=== PATIENT | female | born 2000 | race African-American/Black ===

== ENCOUNTER 2024-07-05 18:25 | Emergency (ER) | payer OTHER ==
[~2024-07-05] VITALS: Ht 157.5 cm; Wt 66.2 kg
[2024-07-05] MEDS ORDERED: PRENTAB9 PO (18:52)
== END 2024-07-05 20:34 | disposition admitted as inpatient to this hospital (09) ==
LOC: M ED 18:25
DX: Z53.21 Procedure and treatment not carried out due to patient leaving prior to being seen by health care provider (principal)

== ENCOUNTER 2024-07-05 18:35 | Outpatient (CLI) ==
[~2024-07-05] VITALS: Ht 157.5 cm; Wt 66.0 kg
[2024-07-05 18:50] VITALS: BP 132/70
[2024-07-05] MEDS ORDERED: PRENTAB9 PO (18:52)
[2024-07-05] MEDS ORDERED: HOME MED LIST COMPLETE! XX SCH (18:55)
[2024-07-05 21:04] LABS: Trichomonas vaginalis (AMP) NOT DETECTED (NEGATIVE)
[2024-07-05 21:27] LABS: GC DNA AMPLIFICATION NEGATIVE (NEGATIVE)
== END 2024-07-05 19:48 | disposition home or self-care (01) ==
LOC: M LDO 18:35
PROVIDERS: ATTEND Advanced Practice Midwife
DX: O26.893 Other specified pregnancy related conditions, third trimester (principal); O99.013 Anemia complicating pregnancy, third trimester; O98.313 Other infections with a predominantly sexual mode of transmission complicating pregnancy, third trimester; R25.2 Cramp and spasm; D50.9 Iron deficiency anemia, unspecified; A74.9 Chlamydial infection, unspecified; Z3A.32 32 weeks gestation of pregnancy
CPT/HCPCS: 59025; 87661; 87810; 87850; G0463

== ENCOUNTER → 2024-08-02 | Outpatient (REF) | payer OTHER ==
[~2024-08-02] MED LIST: PRENTAB9 PO
== END ==
LOC: M SFHCWAGY 12:46
PROVIDERS: ATTEND Obstetrics & Gynecology
DX: Z34.93 Encounter for supervision of normal pregnancy, unspecified, third trimester (principal); Z3A.36 36 weeks gestation of pregnancy

== ENCOUNTER → 2024-08-18 | Outpatient (CLI) | payer OTHER ==
[2024-08-18 18:14] LABS: ALBUMIN 2.6 G/DL (3.2-5.2); ALKALINE PHOSPHATASE 189 U/L (35-104); ALT/SGPT 12 U/L (7.0-40); AST/SGOT 16 U/L (<34); BILIRUBIN,TOTAL 0.3 MG/DL (0.3-1.2); BLOOD UREA NITROGEN < 5 MG/DL (9-23); CALCIUM LEVEL 9.2 MG/DL (8.5-10.1); CARBON DIOXIDE LEVEL 25 MMOL/L (20-31); CHLORIDE LEVEL 103 MMOL/L (98-107); CREATININE FOR GFR 0.41 MG/DL (0.55-1.30); GLOMERULAR FILTRATION RATE > 60.0 (>60); GLUCOSE, FASTING 101 MG/DL (60-100); POTASSIUM SERUM 3.8 MMOL/L (3.5-5.1); SODIUM LEVEL 137 MMOL/L (136-145); TOTAL PROTEIN 6.5 G/DL (5.7-8.2)
== END ==
LOC: M PLALAB 15:41
PROVIDERS: ATTEND Advanced Practice Midwife
DX: Z34.83 Encounter for supervision of other normal pregnancy, third trimester (principal)

== ENCOUNTER 2024-09-03 10:39 | Inpatient (IN) | payer OTHER ==
[2024-09-03] VITALS (14 sets, daily range): BP systolic 115–135; BP diastolic 58–83
[~2024-09-03] VITALS: Ht 157.5 cm; Wt 72.3 kg
[2024-09-03] MEDS ORDERED: HOME MED LIST COMPLETE! XX SCH (11:05)
[2024-09-03] MEDS ORDERED: METHYLERGONOVINE MALEATE 0.2MG/ML 1ML VIAL IM PRN (11:35)
[2024-09-03] MEDS ORDERED: LIDOCAINE 1% MDV 20ML VIAL INFIL PRN (11:35)
[2024-09-03] MEDS ORDERED: TRANEXAMIC ACID INJection 1,000 MG in NS 100 ML IV PRN (11:35)
[2024-09-03] MEDS ORDERED: CARBOPROST TROMETHAMINE 250 MCG/ML AMP IM PRN (11:35)
[2024-09-03 12:28] LABS: HEMATOCRIT 38.5 % (36.0-47.0); HEMOGLOBIN 12.7 g/dl (12.0-15.5); MEAN CORPUSCULAR HEMOGLOBIN 30.2 pg (27.0-33.0); MEAN CORPUSCULAR VOLUME 91.7 fl (80.0-96.0); PLATELET COUNT, AUTOMATED 254 10^3/uL (150-450); WHITE BLOOD COUNT 8.9 10^3/uL (4.0-10.0)
[2024-09-03 13:23] LABS: HIV 1&2 SCREEN NEGATIVE (NEGATIVE)
[2024-09-03 13:31] LABS: HEPATITIS C VIRUS ABY INDEX 0.03 INDEX (<0.8)
[2024-09-03] MEDS: miSOPROStol 50MCG 1/2 TABLET PO SCH (13:52)
[2024-09-03] MEDS: LR 1,000 ML IV SCH (15:56)
[2024-09-03] MEDS ORDERED: LR 1,000 ML IV SCH (19:10)
[2024-09-03] MEDS: OXYTOCIN DRIP 30 UNITS in IV 1 EA IV SCH (20:49)
[2024-09-04] VITALS (58 sets, daily range): BP systolic 102–156; BP diastolic 52–87
[2024-09-04] MEDS ORDERED: NALOXONE INJ 0.4MG/1ML VIAL IV PRN (13:30)
[2024-09-04] MEDS ORDERED: LR 500 ML IV PRN (13:30)
[2024-09-04] MEDS ORDERED: EPIDURAL/PCA KEYS XX PRN (13:30)
[2024-09-04] MEDS ORDERED: ePHEDrine SULFATE 25 MG/5 ML(5MG/ML) SYRINGE IVP PRN (13:30)
[2024-09-04] MEDS: LACTATED RINGER'S 1000 ML IV STA (13:45)
[2024-09-04] MEDS: FENTANYL/ROPIVACAINE/NACL BAG 100 ML EPIDURAL SCH (13:45)
[2024-09-04] MEDS: ONDANSETRON 4MG 2ML VIAL IV PRN (14:05)
[2024-09-04] MEDS: diphenhydrAMINE 50MG/ML VIAL IV PRN (17:23)
[2024-09-04] MEDS: ACETAMINOPHEN 500 MG TAB PO ONE (21:47)
[2024-09-05] VITALS (9 sets, daily range): BP systolic 112–150; BP diastolic 54–77; TEMP 98.3; O2SAT 96–98
[2024-09-05] MEDS: ceFAZolin SODIUM 2 GM in DEXTROSE 5% (D5W) ADV/MINI-BAG 50 ML IV ONE (01:46)
[2024-09-05] MEDS: AZITHROMYCIN INJ 500 MG, VIAL MATE ADAPTER 1 EACH in NS 250 ML IV ONE (01:46)
[2024-09-05] MEDS: BICITRA 30ML SOLN UDC PO ONE (01:46)
[2024-09-05] MEDS ORDERED: MORPHINE PRES-FREE INJ 10 MG/10 ML VIAL As Ordered ONE (01:46)
[2024-09-05] MEDS ORDERED: OXYTOCIN 30UNITS IN 0.9% NaCl 500ML IV BAG As Ordered ONE (01:47)
[2024-09-05] MEDS ORDERED: LIDOCAINE 2% W/EPINEPHRINE 20ML VIAL **PRES FREE As Ordered ONE (01:49)
[2024-09-05] MEDS ORDERED: METOCLOPRAMIDE INJ 10MG/2ML VIAL IV PRN (01:50)
[2024-09-05] MEDS ORDERED: diphenhydrAMINE 50MG/ML VIAL IV PRN (01:50)
[2024-09-05] MEDS ORDERED: **NOTE PATIENT COMMENT** MISC XX SCH (01:50)
[2024-09-05] MEDS ORDERED: NALOXONE INJ 0.4MG/1ML VIAL IV PRN ×2 (01:50)
[2024-09-05] MEDS ORDERED: LIDOCAINE PRES-FREE 2% 10ML AMP As Ordered ONE (02:05)
[2024-09-05] MEDS ORDERED: fentaNYL 100 MCG/2 ML INJECTION As Ordered ONE (02:34)
[2024-09-05] MEDS ORDERED: OXYTOCIN INJ 10UNITS/ML 1ML VIAL As Ordered ONE (02:39)
[2024-09-05] MEDS ORDERED: KETOROLAC 30 MG/ML 1ML VIAL As Ordered ONE (02:39)
[2024-09-05] MEDS ORDERED: ACETAMINOPHEN 1000MG/100ML IV BAG As Ordered ONE (02:39)
[2024-09-05] MEDS ORDERED: ANUSOL HC CREAM 30GM TOP PRN (03:15)
[2024-09-05] MEDS ORDERED: MOM 30ML SUSPENSION UDC PO PRN (03:15)
[2024-09-05] MEDS ORDERED: ONDANSETRON 4MG 2ML VIAL IV PRN (03:15)
[2024-09-05] MEDS ORDERED: CALCIUM CARBONATE 500 MG CHEW U/D PO PRN (03:15)
[2024-09-05] MEDS ORDERED: RHOGAM 300MCG (1500IU) INJ IM SCH (03:15)
[2024-09-05 03:18] LABS: CORD GAS ABE V -1.2; CORD GAS O2 SAT V 69.1 %; CORD GAS PCO2 V 41.8 mmHg; CORD GAS PH V 7.376 UNITS; CORD GAS PO2 V 27.6 mmHg; CORD GAS SBC V 22.7 MMOL/L; CORD GAS TCO2 V 25.2 MMOL/L
[2024-09-05 03:20] LABS: CORD GAS ABE A -5.5; CORD GAS HCO3 A 22.1 MMOL/L; CORD GAS O2 SAT A 64.2 %; CORD GAS PCO2 A 50.2 mmHg; CORD GAS PH A 7.261 UNITS; CORD GAS PO2 A 29.8 mmHg; CORD GAS SBC A 19.2 MMOL/L; CORD GAS TCO2 A 23.6 MMOL/L
[2024-09-05] MEDS: OXYTOCIN DRIP 30 UNITS in IV 1 EA IV SCH (03:40)
[2024-09-05] MEDS: LR 1,000 ML IV SCH (05:09)
[2024-09-05] MEDS: SLF 3 ML SYR IV SCH (05:09)
[2024-09-05] MEDS: PERCOCET 5MG/325MG TAB PO PRN (05:09)
[2024-09-05] MEDS: PRENATAL VITAMINS CHEWABLE TABLET PO SCH (08:33)
[2024-09-05] MEDS: DOCUSATE SODIUM 100MG CAPSULE PO SCH (08:33)
[2024-09-05] MEDS: FERROUS SULFATE 325MG TAB PO SCH (08:33)
[2024-09-05] MEDS: KETOROLAC 30 MG/ML 1ML VIAL IV SCH (08:34)
[2024-09-06 02:00] VITALS: BP 128/64; O2SAT 100
[2024-09-06] MEDS: IBUPROFEN 800 MG TAB PO SCH (05:00)
[2024-09-06 06:00] VITALS: BP 110/59; O2SAT 100
[2024-09-06 07:30] LABS: HEMATOCRIT 27.6 % (36.0-47.0); HEMOGLOBIN 9.1 g/dl (12.0-15.5); MEAN CORPUSCULAR HEMOGLOBIN 30.2 pg (27.0-33.0); MEAN CORPUSCULAR VOLUME 91.7 fl (80.0-96.0); PLATELET COUNT, AUTOMATED 176 10^3/uL (150-450); RED BLOOD COUNT 3.01 10^6/uL (4.00-5.40); WHITE BLOOD COUNT 18.5 10^3/uL (4.0-10.0)
[2024-09-06 10:00] VITALS: BP 119/56; O2SAT 99
[2024-09-06] MEDS: PERCOCET 5MG/325MG TAB PO PRN (10:04)
[2024-09-06 14:00] VITALS: BP 126/66; O2SAT 99
[2024-09-06] MEDS ORDERED: IBUP80TA PO (14:43)
[2024-09-06] MEDS ORDERED: COLA100C5 PO (14:43)
[2024-09-06 18:00] VITALS: BP 134/79; O2SAT 99
[2024-09-06] MEDS: SIMETHICONE 80MG CHEW TAB PO PRN (20:16)
[2024-09-06 22:00] VITALS: BP 136/66; O2SAT 98
[2024-09-07 02:00] VITALS: BP 109/58; O2SAT 99
[2024-09-07 06:00] VITALS: BP 121/59; O2SAT 99
[2024-09-07] MEDS: MEASLES,MUMPS,RUBELLA VACCINE INJ (MMR-II) SC.IMMUN ONE (09:00)
== END 2024-09-07 13:45 | disposition home or self-care (01) | DRG 773 ==
LOC: M LDI 10:39 → M OBS 09-05 04:35
PROVIDERS: ADMIT Advanced Practice Midwife; ATTEND Obstetrics & Gynecology
PROC: 3E0P7GC Introduction of Other Therapeutic Substance into Female Reproductive, Via Natural or Artificial Opening (ICD-10-PCS; 2024-09-03)
PROC: 10D00Z1 Extraction of Products of Conception, Low, Open Approach (ICD-10-PCS; principal; 2024-09-05 02:25)
DX: O32.4XX0 Maternal care for high head at term, not applicable or unspecified (principal); Z37.0 Single live birth; Z3A.40 40 weeks gestation of pregnancy; O76 Abnormality in fetal heart rate and rhythm complicating labor and delivery